=== PATIENT | male | born 1970 | race Hispanic/Latino ===

== ENCOUNTER 2019-02-17 13:30 | Emergency (ER) | payer SELFPAY | END 2019-02-17 14:17 | disposition home or self-care (01) | LOC: MADERS 13:30 | DX: K29.70 Gastritis, unspecified, without bleeding (principal) | CPT/HCPCS: 93005 ==

== ENCOUNTER 2020-12-14 18:03 | Emergency (ER) | payer SELFPAY ==
[2020-12-14] MEDS ORDERED: Acetaminophen 500 MG TAB ONE (18:58)
[2020-12-14 19:01] LABS: #Basophils 0.1 thou/uL (0.0-0.2); #Eosinphils 0.3 thou/uL (0.0-0.7); #Lymphocytes 1.2 thou/uL (1.20-3.40); #Neutrophils 8.3 thou/uL (1.40-6.50); %Eosinophils 2.5 % (0.0-10.0); %Lymphocytes 10.7 % (21.0-51.0); %Monocytes 8.8 % (0.0-10.0); %Neutrophils 77.1 % (42.0-75.0); Mean Corpuscular HGB CONC 32.3 g/dL (32.0-36.0); Mean Corpuscular Hemoglobin 30.3 pg (27.0-31.0); Mean Corpuscular Volume 93.6 fL (78.0-98.0); Mean Platelet Volume 9.2 fL (7.4-10.4); Platelet Count 270 thou/uL (130-400); RBC Distribution Width 11.5 % (11.5-14.5); Red Blood Cell (RBC) Count 4.62 mill/uL (4.70-6.10); White Blood Cell (WBC) Count 10.8 thou/uL (4.8-10.8)
[2020-12-14 19:18] LABS: Leukocyte Negative (Negative); Specific Gravity, Urine 1.025 (1.005-1.030)
[2020-12-14 19:19] LABS: Bilirubin Moderate (Negative); Blood, Urine Negative (Negative); Clarity Hazy (Clear); Glucose, Urine (Dipstick) Negative (Negative); Ketone, Urine 40 mg/dL (Negative); Nitrite Negative (Negative); Protein, Urine (Dipstick) Trace mg/dL (Neg-Trace); Urobilinogen > or = 8.0 mg/dL (Less than 2)
--- NOTE | 2020-12-14 19:19 | CT ---
CT ABDOMEN AND PELVIS WITHOUT CONTRAST: 12/14/20 HISTORY: Right sided pain with radiation to the back. Right upper quadrant pain and epigastric pain with nause a and vomiting. DISCLAIMER: Absence of oral and IV contrast reduces the sensitivity of the exam, particularly for evaluation of s olid organs and bowel. FINDINGS: There is a 4 mm solid nodular density at the left lung base. A similar 4 mm density is also seen in t he right lower lobe. No free air or free fluid is seen in the abdomen or pelvis. The small bowel loop s are not abnormally dilated. A normal appearing appendix is present. There is colonic diverticulosis without diverticulitis. There are vascular calcifications without evidence of aneurysmal dilatation of the abdominal aorta. T here are mild degenerative changes in the spine. No calcified gallstones are seen. The gallbladder is distended without pericolonic inflammatory lópez es. No calculi seen in the kidneys, ureters or the urinary bladder. No hydroureteronephrosis noted on eit her side. The prostate is enlarged. There are small fat containing inguinal hernia. IMPRESSION: 1. Findings are suspicious for acute cholecystitis. 2. No CT evidence of urinary tract calculi or obstruction. 3. Colonic diverticulosis. 4. Prostatic enlargement. 5. 4 mm nodules in the lung bases. If the patient is low risk, no routine follow-up is recommend ed. If he is high risk, Ct scan of the chest should be performed at 12 months. Code T POS: BETTY
[2020-12-14] MEDS ORDERED: Piperacillin/Tazobactam 4.5 GM VIAL ONE (19:26)
[2020-12-14] MEDS ORDERED: Sodium Chloride 0.9% 1,000 ML ONE (19:26)
[2020-12-14] MEDS ORDERED: Morphine 4 MG/ML VIAL ONE (19:26)
[2020-12-14] MEDS ORDERED: Sodium Chloride 0.9% 100 ML ONE (19:26)
== END 2020-12-14 20:45 | disposition short-term general hospital (02) ==
LOC: MADERS 18:03
DX: K81.0 Acute cholecystitis (principal); E78.5 Hyperlipidemia, unspecified
CPT/HCPCS: 36415; 74176; 80053; 81003; 83605; 83690; 85025; 87040; 94760; 96365; 96375; J2270; J2543; J3490; J7050